=== PATIENT | male | born 1990 | race Caucasian/White ===

== ENCOUNTER 2018-12-20 23:48 | Emergency (ER) | payer MEDICAID, OTHER ==
[2018-12-21] MEDS: CYCLOBENZAPRINE 10 MG TAB PO (03:40)
[2018-12-21] MEDS: KETOROLAC 30 MG INJ IM (03:41)
== END 2018-12-21 05:10 | disposition home or self-care (01) ==
LOC: FTE 23:48
DX: S20.219A Contusion of unspecified front wall of thorax, initial encounter (principal); M62.838 Other muscle spasm; F17.210 Nicotine dependence, cigarettes, uncomplicated; V43.62XA Car passenger injured in collision with other type car in traffic accident, initial encounter
CPT/HCPCS: 71046; 72100; 96372; 99284-25

== ENCOUNTER 2018-12-21 22:22 | Emergency (ER) | payer SELFPAY, MEDICAID ==
[2018-12-22] MEDS: ALPRAZOLAM 1 MG TAB PO (01:47)
== END 2018-12-22 01:54 | disposition home or self-care (01) ==
LOC: FTE 22:22
DX: R56.9 Unspecified convulsions (principal); Z87.891 Personal history of nicotine dependence
CPT/HCPCS: 99283